=== PATIENT | male | born 2000 | race African-American/Black ===

== ENCOUNTER 2019-07-28 05:12 | Emergency (ER) | payer BC, OTHER ==
[~2019-07-28] VITALS: Ht 170.2 cm; Wt 49.4 kg
[~2019-07-28 05:12] MED LIST: ALBU8.5H8 INH; BEN25 PO; BENZ-6 PO; PRED20TA PO
[2019-07-28 05:16] VITALS: BP 128/76; PULSE 85; RESP 18; Ht 170.2 cm; Wt 49.4 kg
[2019-07-28] MEDS ORDERED: predniSONE 20 MG TAB PO ONE (06:00)
[2019-07-28] MEDS ORDERED: BENZONATATE 100 MG CAP PO ONE (06:00)
== END 2019-07-28 06:17 | disposition home or self-care (01) ==
LOC: FTE 05:12
DX: R21 Rash and other nonspecific skin eruption (principal); T42.6X5A Adverse effect of other antiepileptic and sedative-hypnotic drugs, initial encounter; J40 Bronchitis, not specified as acute or chronic; Z87.891 Personal history of nicotine dependence
CPT/HCPCS: 99283; J7512; Z7610